=== PATIENT | female | born 1975 | race Caucasian/White ===

== ENCOUNTER → 2017-11-11 | Outpatient (CLI) | payer OTHER ==
--- NOTE | 2017-11-11 15:24 | US ---
EXAMINATION TYPE: US pelvic complete DATE OF EXAM: 11/11/2017 COMPARISON: NONE CLINICAL HISTORY: D25.9 FIBROID UTERUS. patient states known fibroids from ultrasounds. TECHNIQUE: Transabdominal (TA) Date of LMP: 10/12/2017 EXAM MEASUREMENTS: Uterus: 9.6 x 5.5 x 5.7 cm Endometrial Stripe: 0.7 cm Right Ovary: 2.5 x 2.3 x 1.3 cm Left Ovary: not identified cm 1. Uterus: Anteverted several fibroids, largest measures 2.9 x 3.7 x 3.2 cm and is pedunculated. 2. Endometrium: wnl 3. Right Ovary: wnl 4. Left Ovary: not identified 5. Bilateral Adnexa: wnl 6. Posterior cul-de-sac: no free fluid Hypoechoic lesions cul-de-sac lobulation in uterus consistent with underlying subserosal fibroids. En dometrium is not well visualized on images saved but felt not thickened. No free fluid is seen in pel vis. Right ovary is seen. Left ovary is not clearly identified. IMPRESSION: Fibroid uterus is confirmed.
== END | disposition home or self-care (01) ==
LOC: RADUSWWP 14:53
PROVIDERS: ATTEND Obstetrics & Gynecology
DX: D25.9 Leiomyoma of uterus, unspecified (principal)
CPT/HCPCS: 76856

== ENCOUNTER → 2018-01-27 | Outpatient (CLI) | payer OTHER ==
[2018-01-27 09:21] LABS: Appearance,Urine Clear (Clear); Bilirubin,Urine Negative (Negative); Blood,Urine Negative (Negative); Color,Urine Light Yellow; Glucose,Urine (UA) Negative (Negative); Ketones,Urine Negative (Negative); Leukocyte Esterase,Urine Negative (Negative); Nitrite,Urine Negative (Negative); PH, Urine 5.5 (5.0-8.0); Protein,Urine Negative (Negative); Specific Gravity,Urine 1.009 (1.001-1.035); Urobilinogen,Urine <2.0 mg/dL (<2.0)
== END | disposition home or self-care (01) ==
LOC: LABPAT 08:13
PROVIDERS: ATTEND Urology
DX: Z01.812 Encounter for preprocedural laboratory examination (principal); N32.9 Bladder disorder, unspecified; N39.3 Stress incontinence (female) (male); Z79.899 Other long term (current) drug therapy; R35.0 Frequency of micturition; R10.9 Unspecified abdominal pain
CPT/HCPCS: 81003; 87086

== ENCOUNTER 2018-01-28 05:46 | Observation (INO) | payer OTHER ==
[2018-01-25 12:38] VITALS: BMI 41.2
--- NOTE | 2018-01-27 17:08 | P.HPOB ---
History of Present Illness H&P Date: 01/27/18 Chief Complaint: menorrhagia, stress incontinence 42 year old presents for total laparoscopic hysterectomy with da willian and pubovaginal sling. She has a fibroid uterus that causes dysmenorrhea, menorrhagia and some prolapse. She also has stress uterine incontinence and will have sling placed by Dr Walker. Review of Systems All systems: negative Constitutional: Denies chills, Denies fever Eyes: denies blurred vision, denies pain Ears, nose, mouth and throat: Denies headache, Denies sore throat Cardiovascular: Denies chest pain, Denies shortness of breath Respiratory: Denies cough Gastrointestinal: Denies abdominal pain, Denies diarrhea, Denies nausea, Denies vomiting Genitourinary: Denies dysuria, Denies hematuria Musculoskeletal: Denies myalgias Integumentary: Denies pruritus, Denies rash Neurological: Denies numbness, Denies weakness Psychiatric: Denies anxiety, Denies depression Endocrine: Denies fatigue, Denies weight change Past Medical History Past Medical History: GERD/Reflux History of Any Multi-Drug Resistant Organisms: None Reported Additional Past Surgical History / Comment(s): WISDOM TEETH REMOVED UNDER ANESTHESIA. D & C Past Anesthesia/Blood Transfusion Reactions: No Reported Reaction Smoking Status: Never smoker Past Alcohol Use History: None Reported Past Drug Use History: None Reported - Past Family History Mother Family Medical History: No Reported History Medications and Allergies Home Medications Medication Instructions Recorded Confirmed Type Desog/Orthro/Cept 1 each PO DAILY 01/26/18 01/26/18 History Omeprazole [PriLOSEC] 40 mg PO DAILY 01/26/18 01/26/18 History Allergies Allergy/AdvReac Type Severity Reaction Status Date / Time No Known Allergies Allergy Verified 01/25/18 12:30 Exam Osteopathic Statement: *. No significant issues noted on an osteopathic structural exam other than those noted in the History and Physical/Consult. HEart: RRR Lungs: CTAB ABdomen: soft, nontender Extremeties: neg otf's Assessment and Plan (1) Menorrhagia Status: Acute Code(s): N92.0 - EXCESSIVE AND FREQUENT MENSTRUATION WITH REGULAR CYCLE SNOMED Code(s): 482397718 (2) Fibroid uterus Status: Acute Code(s): D25.9 - LEIOMYOMA OF UTERUS, UNSPECIFIED SNOMED Code( s): 93784542 (3) FATOU (stress urinary incontinence, female) Status: Acute Code(s): N39.3 - STRESS INCONTINENCE (FEMALE) (MALE) SNOMED Code(s): 90997790 Plan: 1. total laparoscopic hysterectomy with da willian, diagnostic cystoscopy and pubovaginal sling by urology.
[~2018-01-28 05:46] MED LIST: ceFAZolin 1,000 MG in DEXTROSE/WATER 1 50ML.BAG IV ONE
[2018-01-28] MEDS ORDERED: ONDANSETRON 4 MG/2 ML VIAL IVP ONE (06:06)
[2018-01-28] MEDS ORDERED: MIDAZOLAM 2 MG/2 ML VIAL IV PRN (06:06)
[2018-01-28] MEDS ORDERED: LIDOCAINE 1% 20 ML VIAL (10MG/ML) FOR IV START INTRADERMA PRN (06:06)
[2018-01-28] MEDS ORDERED: DEXAMETHASONE SOD PHOSPHATE 10 MG/ML 1 ML VIAL IV ONE (06:06)
[2018-01-28] MEDS ORDERED: SCOPOLAMINE 1.5MG/72HR PATCH TRANSDERM ONE (06:06)
[2018-01-28] MEDS: LACTATED RINGERS 1,000 ML IV SCH ×2 (06:43→13:48)
[2018-01-28] MEDS ORDERED: BUPIVACAINE (PF) 0.25% 30 ML VIAL SQ ONE ×2 (07:21)
[2018-01-28] MEDS ORDERED: MIDAZOLAM 2 MG/2 ML VIAL ONE (07:28)
[2018-01-28] MEDS ORDERED: NEOSTIGMINE 1 MG/ML 10 ML VIAL ONE (07:28)
[2018-01-28] MEDS ORDERED: ROCURONIUM BROMIDE 10 MG/ML 10 ML VIAL IV ONE (07:28)
[2018-01-28] MEDS ORDERED: PROPOFOL 10 MG/ML 20 ML VIAL IV ONE (07:28)
[2018-01-28] MEDS ORDERED: KETOROLAC 30 MG/ML 1 ML VIAL ONE (07:28)
[2018-01-28] MEDS ORDERED: fentaNYL (PF) 50 MCG/ML 2 ML AMP ONE (07:28)
[2018-01-28] MEDS ORDERED: GLYCOPYRROLATE 0.2 MG/ML 2 ML VIAL ONE (07:28)
[2018-01-28] MEDS ORDERED: LIDOCAINE 1% INJ 10MG/ML (20 ML MDV) ONE (07:28)
[2018-01-28] MEDS ORDERED: ceFAZolin 1,000 MG VIAL ONE (07:28)
[2018-01-28] MEDS ORDERED: LACTATED RINGERS 1,000 ML IV ONE (09:08)
[2018-01-28] MEDS ORDERED: BACITRACIN 500 UNIT/GM OINT 28.4 GM TUBE TOPICAL ONE (09:12)
--- NOTE | 2018-01-28 09:25 | P.OP ---
Date of Procedure: 01/28/18 Preoperative Diagnosis: Stress urinary incontinence, uterine fibroid Postoperative Diagnosis: Same Procedure(s) Performed: Trans-obturator tape,obtryx2, cystoscopy Anesthesia: HELLEN Surgeon: Eliceo Walker Estimated Blood Loss (ml): 50 Pathology: none sent Condition: stable Disposition: PACU Indications for Procedure: The patient is a 42-year-old female who underwent a robotic-assisted laparoscopic hysterectomy by Dr. Unger who has stress urinary incontinence who comes for a trans-obturator tape this morning. Description of Procedure: The patient has been previously anesthetized. Dr. Unger did a robotic- assisted laparoscopic hysterectomy transvaginally. I will do a bladder neck suspension. The patient is already been prepped and draped in is in lithotomy. A vaginal speculum was placed in the vagina. A Harris catheters been previously placed and his with clear urine. incisions in the inguinal crease at the level clitoris are made bilaterally. I then make a suburethral incision in the anterior vaginal wall. I dissect lateral the bladder neck bilaterally. I passed the trans-obturator tape introducers through the inguinal crease incision into the vaginal space bilaterally behind the pubis. I then performed cystoscopy with a Foroblique lens and 17-Malay sheath to make sure there is no bladder injury and there is none. I then inspect the rest of the bladder is unremarkable and the ureters have clear urine. I then attached the graft to the introducers and pull introducers back through the obturator foramen through the inguinal incisions bilaterally. The graft lays in the mid urethra nicely. Removed the redundant sheathing. I closed the vaginal mucosa with a running 2- 0 Vicryl. Eyes the redundant graft at the inguinal incisions and close inguinal incisions with 4-0 Vicryl. Prior to the placement of the graft the Harris catheter was replaced. The urine remains clear. A vaginal packing is placed. The patient is awakened and returned recovery room. Blood loss from the urinary procedure is 50 mL.
--- NOTE | 2018-01-28 09:27 | P.OP ---
Date of Procedure: 01/28/18 Preoperative Diagnosis: 1. menorrhagia 2. fibroid uterus 3. dysmenorrhea 4. FATOU Postoperative Diagnosis: 1. menorrhagia 2. fibroid uterus 3. dysmenorrhea 4. FATOU Procedure(s) Performed: Total laparoscopic hysterectomy and salpingectomy with da mani, monarch sling placed by urology Anesthesia: HELLEN Surgeon: Ramila Unger Electric Operator #1: Kameron Pabon Estimated Blood Loss (ml): 50 Pathology: other (Uterus, cervix, bilateral fallopian tubes) Condition: stable Disposition: PACU Operative Findings: Fibroid uterus, normal fallopian tubes, normal ovaries, endometriosis seen in the posterior cul-de-sac along the right uterosacral ligament. Description of Procedure: Patient taken the operating room where general anesthesia was obtained without difficulty. She is prepped and draped in normal sterile fashion dorsal lithotomy position, legs placed in the Terrance stirrups. Weighted speculum placed in the vagina and the anterior lip the cervix was grasped with single- tooth tenaculum. The uterus sounded to 11 cm and the cervix diameter was 3.5 cm. The appropriate manipulator tip and ring were placed on the Mary Alice manipulator. The Mary Alice manipulator was then placed in the uterus. Harris catheter was also placed. Attention was then turned to the abdomen and gloves were changed. A 5 mm supraumbilical incision was made the scalpel and a 5 mm optical trocar was placed under direct visualization. 10 cm to the right of this and 2 cm down a 5 mm incision was made and 8 mm da Mani port was placed under direct visualization. Same measurements on the opposite side of the patient's abdomen, the 5 mm incision was made and 8 mm da Mani port was placed under direct visualization. In the left upper quadrant a 10 mm incision was made and a 10 mm optical trocar was placed under direct visualization. The 5 mm optical trocar was then replaced with the 8 mm da Mani camera port. The robot was docked on patient's right side. The camera was introduced and then the monopolar curved scissor and [place] bipolar placed under direct visualization. I broke scrub and went to the physician console. The left mesosalpinx was cauterized with the [place] bipolar and cut with monopolar curved scissors. The left round ligament was cauterized with the [place] bipolar and cut with monopolar curved scissors. The posterior leaf of the broad ligament was taken down using the monopolar curved scissors. Anterior leaf of the broad ligament was then taken down using the monopolar curved scissors. The uterine artery was cauterized with the [place] bipolar and cut with monopolar curved scissors. The bladder flap was then started using the monopolar curved scissors. Attention was then turned to the right side of the patient's anatomy and the right mesosalpinx was cauterized with the Maryland bipolar and cut with monopolar curved scissors. The right round ligament was cauterized with the [place] bipolar and cut with monopolar curved scissors. Posterior leaf of the broad ligament was taken down using the monopolar curved scissors and the anterior leaf was taken down using the monopolar curved scissors. The uterine artery was cauterized the Maryland bipolar cut with monopolar curved scissors. The bladder flap was then finished on this side. Anterior colpotomy was made using the monopolar curved scissors. The rest of the uterus was from the vaginal cuff by following the ring around with the monopolar curved scissors through the uterosacral ligaments back to the anterior portion. Once the uterus and cervix and both fallopian tubes were amputated they were pulled through the vaginal cuff. Hemostasis was assured. The instruments were changed for the Cardier forcep and the kelsi suture cut. The vaginal cuff was then closed using O stratafix barbed suture in a running fashion. Hemostasis was again assured and the pelvis was irrigated. All instruments were removed from the abdomen and the robot was undocked. The abdominal incisions were closed with 4-0 Vicryl in a subcuticular fashion. Dr. Walker then stepped in to do his portion of the procedure. Please see his dictation for full details.
[2018-01-28] MEDS ORDERED: SIMETHICONE 80 MG CHEWABLE PO PRN (09:44)
[2018-01-28] MEDS ORDERED: Acetaminophen-Codeine 300-30mg TAB PO PRN (09:44)
[2018-01-28] MEDS ORDERED: IBUPROFEN 600 MG TAB PO PRN (09:44)
[2018-01-28] MEDS ORDERED: ONDANSETRON 4 MG/2 ML VIAL IVP PRN (09:44)
[2018-01-28] MEDS: fentaNYL (PF) 50 MCG/ML 2 ML AMP IV PRN ×2 (09:58→10:05)
[2018-01-28] MEDS: Acetaminophen-Codeine 300-30mg TAB PO PRN ×2 (11:27→19:33)
[2018-01-28] MEDS: KETOROLAC 30 MG/ML 1 ML VIAL IVP PRN ×2 (14:54→21:36)
[2018-01-28] MEDS: SENNOSIDES-DOCUSATE SODIUM 1 EACH TAB PO SCH (21:25)
[2018-01-29 04:56] VITALS: RESP 18
[2018-01-29 06:33] LABS: Basophils % (A) 0 %; Eosinophils # (A) 0.1 k/uL (0-0.7); Eosinophils % (A) 1 %; HCT 33.6 % (34.0-46.0); HGB 10.9 gm/dL (11.4-16.0); Lymphocytes # (A) 2.6 k/uL (1.0-4.8); Lymphocytes % (A) 27 %; MCH 26.6 pg (25.0-35.0); MCHC 32.6 g/dL (31.0-37.0); MCV 81.7 fL (80.0-100.0); Mean Platelet Volume 7.3; Monocytes # (A) 0.4 k/uL (0-1.0); Monocytes % (A) 5 %; Neutrophils # (A) 6.4 k/uL (1.3-7.7); Neutrophils % (A) 66 %; Platelet Count 226 k/uL (150-450); RBC 4.11 m/uL (3.80-5.40); RDW 13.5 % (11.5-15.5); WBC 9.7 k/uL (3.8-10.6)
[2018-01-29] MEDS: KETOROLAC 30 MG/ML 1 ML VIAL IVP PRN (07:23)
[2018-01-29] MEDS ORDERED: PANTOPRAZOLE 40 MG TABLET PO SCH (07:30)
[2018-01-29 07:32] VITALS: BP 107/67; PULSE 65; TEMP 97.8
--- NOTE | 2018-01-29 07:37 | P.DS ---
Providers Date of admission: 01/28/18 23:31 Attending physician: Eliceo Walker Primary care physician: [facility] Course: The patient was admitted to the hospital for robotic-assisted laparoscopic hysterectomy. She also had a trans-obturator tape. She did well overnight. Her pain was controlled. A catheter and packing removed this morning. She will ambulate. If she voids without difficulty and Dr. Unger clears her she'll be discharged home. She'll be seen by me in the office in one week. Postoperative instructions been given. She'll be seen by Dr. Unger at Dr. Dwyer requested. Her condition is good. Patient Condition at Discharge: Good Plan - Discharge Summary Discharge Rx Participant: Yes New Discharge Prescriptions: New HYDROcodone/APAP 5-325MG [[place] 5-325] 1 tab PO Q4HR PRN #20 tab PRN Reason: Pain No Action Omeprazole [PriLOSEC] 40 mg PO DAILY Discharge Medication List Omeprazole [PriLOSEC] 40 mg PO DAILY 01/26/18 [History] HYDROcodone/APAP 5-325MG [[place] 5-325] 1 tab PO Q4HR PRN #20 tab 01/29/18 [Rx] Follow up Appointment(s)/Referral(s): Eliceo Walker MD [STAFF PHYSICIAN] - 1 Week Activity/Diet/Wound Care/Special Instructions: may shower Discharge Disposition: HOME SELF-CARE
[2018-01-29] MEDS: SENNOSIDES-DOCUSATE SODIUM 1 EACH TAB PO SCH (09:04)
--- NOTE | 2018-01-29 09:08 | P.DS ---
Providers Date of admission: 01/28/18 23:31 Expected date of discharge: 01/29/18 Attending physician: Eliceo Walker Primary care physician: Ramon Basilio - Discharge Diagnosis(es) (1) Menorrhagia Current Visit: Yes Status: Resolved (2) Fibroid uterus Current Visit: Yes Status: Resolved (3) FATOU (stress urinary incontinence, female) Current Visit: Yes Status: Resolved (4) History of robot-assisted laparoscopic hysterectomy Current Visit: Yes Status: Acute Hospital Course: Pt presented for TLH with da willian and monarch sling. She underwent this procedure without complication. Her postop course was uncomplicated. Pain controlled with po pain meds. Tolerating reg diet, ambulating without a problem. She will be discharged home POD #1 in stable condition to follow up with me in [address] Walker in 1 week. Patient Condition at Discharge: Good Plan - Discharge Summary Discharge Rx Participant: Yes New Discharge Prescriptions: New HYDROcodone/APAP 5-325MG [[place] 5-325] 1 tab PO Q4HR PRN #20 tab PRN Reason: Pain Ibuprofen [Motrin] 600 mg PO Q6HR PRN #30 tab PRN Reason: Mild Discomfort No Action Omeprazole [PriLOSEC] 40 mg PO DAILY Discharge Medication List Omeprazole [PriLOSEC] 40 mg PO DAILY 01/26/18 [History] HYDROcodone/APAP 5-325MG [[place] 5-325] 1 tab PO Q4HR PRN #20 tab 01/29/18 [Rx] Ibuprofen [Motrin] 600 mg PO Q6HR PRN #30 tab 01/29/18 [Rx] Follow up Appointment(s)/Referral(s): Eliceo Walker MD [STAFF PHYSICIAN] - 1 Week Ramila Unger DO [Doctor of Osteopathic Medicine] - 3 Weeks Activity/Diet/Wound Care/Special Instructions: may shower Discharge Disposition: HOME SELF-CARE
== END 2018-01-29 11:18 | disposition home or self-care (01) ==
LOC: OR 05:46 → 6PED 09:15 → OR 23:31 → 6PED 23:31
PROVIDERS: ADMIT Urology; ATTEND Urology
DX: D25.1 Intramural leiomyoma of uterus (principal); N39.3 Stress incontinence (female) (male); D25.2 Subserosal leiomyoma of uterus; N80.0 Endometriosis of uterus; N72 Inflammatory disease of cervix uteri; K21.9 Gastro-esophageal reflux disease without esophagitis; Z79.899 Other long term (current) drug therapy; Z79.3 Long term (current) use of hormonal contraceptives; N80.3 Endometriosis of pelvic peritoneum; N80.1 Endometriosis of ovary
CPT/HCPCS: 57288; 58571; S2900; 81025; 85025; 86850; 86900; 86901; 88307

== ENCOUNTER → 2024-02-26 | Outpatient (CLI) | payer OTHER ==
--- NOTE | 2024-02-27 11:38 | MR ---
EXAMINATION TYPE: MR knee RT wo con DATE OF EXAM: 02/26/2024 COMPARISON: None HISTORY: Right knee pain for 4-6 months TECHNIQUE: Multiplanar, multisequence imaging of the right knee is performed without IV contrast. FINDINGS: There is diffuse abnormal increased signal intensity in the subchondral bone of the medial femoral co ndyle and medial tibial plateau. No discrete fracture line is seen. There is marked narrowing of the medial compartment of the knee which is nearly bone on bone. There is complete loss of the articular cartilage in the medial meniscus is extruded medially lying immediately medial collateral ligament wh ich is intact. There is diffuse abnormal signal intensity within the medial meniscus without discrete tear. There is moderate degenerative arthritis of the lateral compartment where there is [id number] thinning of the articular cartilage and mild hypertrophic spurring but no subchondral bone changes. T here is no discrete tear the lateral meniscus. The lateral collateral ligament is intact. There is chondromalacia of the patellar cartilage. There is a moderate joint effusion. The cruciate ligaments are intact. The patellar and quadriceps tendons are intact. IMPRESSION: 1. Moderate joint effusion. 2. Marked osteoarthritic change of the medial compartment of the knee and moderate osteoarthritic jaden nge of the lateral compartment. 3. Chondromalacia patella 4. No discrete meniscal tear. 5. No ligamentous injury.
== END | disposition home or self-care (01) ==
LOC: RADMRIMAIN 15:48
PROVIDERS: ATTEND Orthopaedic Surgery
DX: M17.11 Unilateral primary osteoarthritis, right knee (principal); M23.8X1 Other internal derangements of right knee; M25.461 Effusion, right knee; M22.41 Chondromalacia patellae, right knee